=== PATIENT | female | born 1970 | race Two or more races ===

== ENCOUNTER 2024-06-03 18:26 | Emergency (ER) | payer SELFPAY ==
--- NOTE | 2024-06-03 18:36 | EKG_ITS ---
[facility] Test Date: 2024-06-03 Pat Name: BRIE PURVIS Department: Room: - Gender: Female [place]omin[place]: : 1970 Requested By: Bud Tipton Order Number: [id number] Reading MD: Bud Tipton Measurements Intervals Dewar Rate: 72 P: 35 OH: 174 QRS: 26 QRSD: 108 T: 0 QT: 392 QTc: 431 Interpretive Statements SINUS RHYTHM NONSPECIFIC T-WAVE ABNORMALITY No previous ECG available for comparison /[id number]/[email or web address]/[id number].pdf
[2024-06-03 19:20] VITALS: BP 157/93; PULSE 76; RESP 18; TEMP 37; O2SAT 95
--- NOTE | 2024-06-03 19:51 | PD.EDRME ---
Rapid Medical Screening Exam E Arrival date/time: 06/03/24 18:26 53F with history of HTN presents to ED with 1 day of cough and some CP when coughing. Chief Complaint: Flu Like Symptoms Time Seen by Provider: 06/03/24 19:46 Vital signs: Vital Signs Temperature 98.6 F 06/03/24 19:20 Pulse Rate 76 06/03/24 19:20 Respiratory Rate 18 06/03/24 19:20 Blood Pressure 157/93 H 06/03/24 19:20 Pulse Oximetry (%) 95 06/03/24 19:20 Oxygen Delivery Method Room Air 06/03/24 19:20
--- NOTE | 2024-06-03 20:02 | PD.EDADDENDU ---
Emergency Room Addendum Addendum Narrative: When I looked for the patient, I was told the patient eloped. Torey Murillo MD
== END 2024-06-03 22:10 | disposition left against medical advice (07) ==
LOC: SERX 20:05
PROVIDERS: Emergency Provider Emergency Medicine
DX: R05.9 Cough, unspecified (principal); R07.9 Chest pain, unspecified; R94.31 Abnormal electrocardiogram [ECG] [EKG]; I10 Essential (primary) hypertension; Z53.29 Procedure and treatment not carried out because of patient's decision for other reasons
CPT/HCPCS: 87400; 87811; 93005; 99281